=== PATIENT | female | born 1990 | race Caucasian/White ===

== ENCOUNTER 2022-10-09 10:41 | Outpatient (RCR) | payer MEDICAID, SELFPAY ==
--- NOTE | 2022-10-09 11:15 | HOLTER_ITS ---
APPROVED REPORT Conclusion This is a 24-hour Holter monitor ordered for chest pain Rhythm throughout was sinus with an average heart rate of 82. Minimum was 55, maximum 165 There are very rare isolated atrial and ventricular ectopic beats There is no atrial fibrillation, no SVT, no high-grade AV block, no pauses greater than 3 seconds Patient symptoms were reported which had no correlation with any dysrhythmia
== END 2022-10-27 23:59 | disposition home or self-care (01) ==
LOC: CARDOPNVT 10:41
PROVIDERS: PCP Naturopath; Visit Provider Naturopath
DX: R07.9 Chest pain, unspecified (principal)
CPT/HCPCS: 93225; 93226

== ENCOUNTER 2022-10-16 00:35 | Outpatient (CLI) | payer MEDICAID, SELFPAY ==
--- NOTE | 2022-10-16 06:27 | DI.MRI_ITS ---
Exam(s) MR BRAIN WO EXAM: MR BRAIN WO CLINICAL HISTORY: WEAKNESS,PARESTHESIAS,R53.1,E20.2,? MS TECHNIQUE: Multiplanar multisequence MRI of the brain was performed. COMPARISON: No priors for comparison. FINDINGS: VENTRICLES AND EXTRA AXIAL SPACES: Normal in size and morphology for the patient's age. MIDLINE SHIFT: None. CEREBRAL PARENCHYMA: No focus of restricted diffusion to suggest acute infarct. No space-occupying le kala identified. HEMORRHAGE: None. BRAINSTEM/CEREBELLUM: Normal. CALVARIUM: Normal. VISUALIZED PARANASAL SINUSES/MASTOIDS:Clear. [place]: Normal flow void. PITUITARY GLAND: Unremarkable. OTHER FINDINGS: None. IMPRESSION: Unremarkable MRI of the brain. DATA REPOSITORY:
== END 2022-10-16 00:55 ==
PROVIDERS: PCP Naturopath; Visit Provider Psychiatry & Neurology Neurology
DX: R20.2 Paresthesia of skin (principal); R53.1 Weakness
CPT/HCPCS: 70551

== ENCOUNTER 2022-10-16 12:42 | Emergency (ER) | payer MEDICAID, SELFPAY ==
[2022-10-16] VITALS (21 sets, daily range): BP systolic 72–157; BP diastolic 58–105; PULSE 60–178; RESP 18; TEMP 36.8; O2SAT 96–100
--- NOTE | 2022-10-16 15:09 | W.ED.GENAD ---
Discharge Plan Disposition Patient Disposition: Home Discharge Details Chief Complaint: GenMedical Clinical Impression: Fatigue, Paresthesia Primary Care Provider: Rigoberto Torre ED Provider: Dionicio Henriquez Meds and New Rx's Prescriptions: No Action doxycycline monohydrate 100 mg capsule 100 mg PO BID Rx Instructions: 1 capsule BID PO for 30 days salmon oil-omega-3 fatty acids 1,000-210 mg capsule PO Rx Instructions: unidentified dose astaxanthin 4 mg capsule 12 mg PO DAILY Rx Instructions: unspecified dose on med list vitamin D3-vitamin K2 250 mcg (10,000 unit)-45 mcg capsule 1 cap PO DAILY Rx Instructions: unspecified dose on med list fvtfciqo-dluzclxx-rtaqj acids Capsule PO Rx Instructions: Unspecified dose on med list vit B comp-vit E-FA-hb 105 30-0.4 unit-mg tablet PO Rx Instructions: unspecified dose in med list NT Factor Energy PO Rx Instructions: no dosing info listed on med list BDNF Essentials PO Rx Instructions: no dosing info on med list omega-3 fatty acids Capsule 500 mg PO DAILY Patient Comments: no dosing info on med list Ion Biome 1 tsp PO TID Daily Immune 2 cap PO DAILY Rx Instructions: With food Ortho Spore 1 cap PO DAILY Vital Nutrients detox formula 2 cap PO DAILY LB Core protocol PO Rx Instructions: No dosing information listed on med list HPA Adapt 3 cap PO DAILY zolpidem 5 mg tablet 5 mg PO QHS Rx Instructions: may repeat once if no response in 30-60 minutes hydroxyzine HCl 25 mg tablet 100 mg PO QHS Rx Instructions: 1 tab PO QHS for 30 days clonidine HCl 0.1 mg tablet 0.1 mg PO QHS dextroamphetamine-amphetamine [Adderall XR] 20 mg capsule,extended release 24hr 20 mg PO DAILY gabapentin 300 mg capsule 300 mg PO DAILY Patient Comments: TAKE ONE CAPSULE BY MOUTH EVERY DAY IN THE EVENING Discharge Instructions Instructions: Fatigue (ED) Additional Instructions: Please follow with your primary care physician. Please return to the emergency department for any worsening symptoms Medical Decision Making 32-year-old female history of fibromyalgia, Lyme, presents with body ache paresthesias over the past several weeks intermittent in nature can be exacerbated by physical stimuli in the environment. Patient is afebrile nontoxic neurologically intact moving all extremities no signs of trauma intoxication or infection. Will evaluate basic metabolic panel urinalysis CBC to assess for any electrolyte derangements or signs of dehydration. Low suspicion for acute neurologic process such as CVA or encephalitis given history and physical. Low suspicion for cardiopulmonary disease given age history and physical. Will trial fluids benzodiazepine Zofran and dexamethasone. 17: 08 patient appears greatly improved after fluids and medications. Labs unremarkable. Patient will follow-up with her primary care physician. Given home care instructions and return precaution HPI General Date/Time Provider Initiated Documentation: 10/16/22 12:56. HPI Narrative: 32-year-old female history of fibromyalgia Lyme disease presents with tingling sensation body pain lightheadedness triggered by environmental stimuli such as warm/hot bath. No chest pain or shortness of breath. No syncope. Patient endorses chronic Lyme disease is not on any antibiotics Related Data Home Medications Medication Instructions Recorded Confirmed doxycycline monohydrate 100 mg 100 mg PO BID 06/23/22 10/01/22 capsule salmon oil 1,000 mg-omega-3 fatty cap PO 06/23/22 10/01/22 acids 210 mg capsule BDNF Essentials PO 06/24/22 10/01/22 Daily Immune 2 cap PO DAILY 06/24/22 10/01/22 HPA Adapt 3 cap PO DAILY 06/24/22 10/16/22 Ion Biome 1 tsp PO TID 06/24/22 10/16/22 LB Core protocol PO 06/24/22 10/01/22 NT Factor Energy PO 06/24/22 10/01/22 Ortho Spore 1 cap PO DAILY 06/24/22 10/16/22 Vital Nutrients detox formula 2 cap PO DAILY 06/24/22 10/16/22 astaxanthin 4 mg capsule 12 mg PO DAILY 06/24/22 10/16/22 ytytoijj-eflloief-fmqku acids cap PO 06/24/22 10/01/22 capsule omega-3 fatty acids 500 mg PO DAILY 06/24/22 10/16/22 vit B comp-vit E-FA-hb 105 30 tab PO 06/24/22 10/01/22 unit-0.4 mg tablet vitamin D3 250 mcg (10,000 1 cap PO DAILY 06/24/22 10/16/22 unit)-vitamin K2 45 mcg capsule clonidine HCl 0.1 mg tablet 0.1 mg PO QHS 10/01/22 10/01/22 dextroamphetamine-amphetamine ER 20 mg PO DAILY 10/01/22 10/16/22 20 mg 24hr capsule,extend release (Adderall XR) hydroxyzine HCl 25 mg tablet 100 mg PO QHS 10/01/22 10/01/22 zolpidem 5 mg tablet 5 mg PO QHS 10/01/22 10/01/22 gabapentin 300 mg capsule 300 mg PO DAILY 10/16/22 10/16/22 Allergies Allergy/AdvReac Type Severity Reaction Status Date / Time No Known Allergies Allergy Verified 10/16/22 12:56 General Stated Complaint: GenMedical EUGENIA: 3 Review of Systems Narrative: Review of Systems Constitutional: Body aches Eyes: negative ENT: negative Cardiovascular: negative Respiratory: negative Gastrointestinal: negative : negative Musculoskeletal: negative Skin: negative Neurologic: Paresthesias Psych: negative PFSH All Active Problems (Updated 10/16/22 @ 17:12 by Dionicio Henriquez MD) Fatigue (Acute) Paresthesia (Acute) Paresthesias (Acute) Weakness (Acute) Medical History ADHD Anxiety Chronic fatigue Depression Fibromyalgia Insomnia Lyme disease Ruptured appendix Surgical History H/O knee surgery R knee scope 2005 H/O spinal fusion L5-S1, 2013. Hx of colonoscopy S/P appendectomy Family History Father Hypertension Brother Lyme arthritis Social History Smoking/Tobacco Use Status: Never Smoking risk assessment performed?: Yes Alcohol Intake: current Alcohol Intake frequency: a few times a week Alcohol type: beer and hard liquor Details: OCCASIONAL 4 DRINKS PER WEEK Drug use: Daily Substance use type: marijuana Household members: significant other Education Level: college current occupation: Waste Specialist Exam Narrative Exam Narrative: Physical Examination General: alert, awake, cooperative, no acute distress HEENT: normocephalic, atraumatic; PERRL, EOM intact, conjunctiva normal; no nasal discharge; moist mucous membranes, oral and pharyngeal mucosa normal, tolerating secretions Neck: supple, trachea midline; full ROM Chest: normal to inspection Respiratory: normal respiratory effort, speaking in full sentences, clear to auscultation, no wheezing, rales or rhonchi Cardiac: regular rate, regular rhythm, S1S2 intact, no murmurs rubs or gallops GI: abdomen soft, non-tender, non-distended; no palpable mass or hepatosplenomegaly Skin: no lesions, rashes or trauma appreciated Neuro: AAOx3, normal speech, moving all extremities Extremities: No peripheral edema, no signs of trauma, moving all extremities Course Vital Signs Vital signs: Vital Signs Temperature 36.8 C 10/16/22 12:52 Pulse 79 10/16/22 12:52 Respiratory Rate 18 10/16/22 12:52 Blood Pressure 157/105 H 10/16/22 12:52 Pulse Oximetry 99 10/16/22 12:52 Temperature 36.8 C 10/16/22 12:52 Temperature Source Oral 10/16/22 12:52 Pulse 79 10/16/22 12:52 Respiratory Rate 18 10/16/22 12:52 Respiratory Effort Normal 10/16/22 14:59 Respiratory Depth Normal 10/16/22 14:59 Respiratory Pattern Normal 10/16/22 14:59 Blood Pressure 157/105 H 10/16/22 12:52 Blood Pressure Position Sitting 10/16/22 12:52 Pulse Oximetry 99 10/16/22 12:52 Oxygen Delivery Method Room Air 10/16/22 12:52 Oxygen Flow Rate 0 10/16/22 12:52 Pain Level 6 10/16/22 12:52 Lab/Test Results Lab/Test Results: Laboratory Tests Range/Units 10/16/22 14:57 Urine Opiates Screen Cancelled Urine Methadone Screen Cancelled Ur Barbiturates Screen Cancelled Ur Tricyclics Screen Cancelled Ur Amphetamines Screen Cancelled U Benzodiazepines Scrn Cancelled Urine Cocaine Screen Cancelled Ur THC Screen Cancelled PAWSS Have you Been Recently Intoxicated or Drunk Within the Last 30 days?: Yes Have you Ever Experienced Previous Episodes of Alcohol Withdrawal?: No Have you ever Experienced Withdrawal Seizures?: No Have you ever Experienced Delirium Tremens(DT)s?: No Have you ever undergone Alcohol Rehabilitation Treatment (i.e, inpt ot outpatient treatment programs)?: No Have you ever Experienced Blackouts?: No Have you ever Combined Alcohol with other Downers within the last 90 days?: Yes Have you ever Combined Alcohol with any other Substance of Abuse during the last 90 days?: No Positive Blood Alcohol level on Presentation? [PCS.BAL]: No Evidence of Increased Autonomic Activity (i.e. HR>120, tremor, sweating, agitation, nausea)?: No Result: 1
[2022-10-16 15:12] LABS: Bilirubin Negative (Negative); Blood Negative (Negative); Clarity Clear (Clear); Glucose Negative (Negative); Ketones 15 mg/dL (Negative); Leukocyte Esterase Negative (Negative); Nitrite Negative (Negative); Urobilinogen 0.2 mg/dL (Up to 0.2); pH 7.5 (5-8)
[2022-10-16 15:21] LABS: Abs Immature Grans 0.02 10^3/uL (0.0-0.06); Absolute Basophil Count 0.03 10^3/uL (0.0-0.2); Absolute Eosinophil Count 0.02 10^3/uL (0.0-0.7); Absolute Lymphocyte Count 1.52 10^3/uL (1.2-3.4); Absolute Monocyte Count 0.36 10^3/uL (0.1-0.8); Absolute Neutrophil Count 6.03 10^3/uL (1.2-6.7); Basophils % 0.4; Eosinophils % 0.3; HCT 37.9 % (36.0-46.0); HGB 12.6 g/dL (11.2-15.7); Immature Grans % 0.3; MCH 28.8 pg (27.0-33.0); MCHC 33.2 % (32.0-36.0); MCV 87 fL (80-95); MPV 9.9 fL (8.0-11.0); Monocytes % 4.5; Neutrophils % 75.5; Platelet Count 248 10^3/uL (130-400); RBC 4.37 10^6/uL (3.93-5.22); RDW 12.7 % (11.7-14.6); RDW-SD 40.5 fL; WBC 7.98 10^3/uL (4.4-10.8)
[2022-10-16 15:38] LABS: ALT 11 U/L (14-59); AST 12 U/L (15-37); Albumin 4.3 g/dL (3.4-5.0); Alkaline Phosphatase 69 U/L (46-116); Anion Gap 8.2 mmol/L (3-11); BUN 5 mg/dL (7-18); Bilirubin, Total 0.5 mg/dL (0.2-1.0); CO2 24.8 mmol/L (21.0-32.0); CREATININE 0.8 mg/dL (0.55-1.02); Calcium 8.8 mg/dL (8.5-10.1); Chloride 109 mmol/L (98-107); Estimated GFR 100.96 (mL/min/1.73m2); Glucose 103 mg/dL (74-106); Potassium 3.7 mmol/L (3.5-5.1); Sodium 142 mmol/L (136-145); Total Protein 6.8 g/dL (6.4-8.2)
[2022-10-16] MEDS: Normal Saline 1,000 ML 1000 ML IV (15:43)
[2022-10-16] MEDS: Dexamethasone 10 MG/ML VIAL IVP (15:44)
[2022-10-16] MEDS: Ondansetron 4 MG/2 ML VIAL IVP (15:44)
[2022-10-16] MEDS: LORazepam 2 MG/ML VIAL 1 MG IVP (15:44)
[2022-10-20 10:11] LABS: Lyme Ab w Rflx to Lyme Confirm Negative (Negative)
[2022-10-21 15:38] LABS: Anaplasma phagocytophilum Negative (Negative); B. miyamotoi PCR Negative (Negative); Babesia divergens/MO-1 Negative (Negative); Babesia duncani Negative (Negative); Babesia microti Negative (Negative); Ehrlichia chaffeensis Negative (Negative); Ehrlichia ewingii/canis Negative (Negative); Ehrlichia muris eauclairensis Negative (Negative)
== END 2022-10-16 17:53 | disposition home or self-care (01) ==
PROVIDERS: Emergency Provider Emergency Medicine; PCP Naturopath
DX: M79.10 Myalgia, unspecified site (principal); R53.83 Other fatigue; R20.2 Paresthesia of skin; A69.20 Lyme disease, unspecified
CPT/HCPCS: 36415; 80053; 80307; 87798; 96361; 96374; 96375; 99283; 81003; 85025; 86618; J1100; J2060; J2405

== ENCOUNTER 2022-10-17 11:18 | Emergency (ER) | payer MEDICAID, SELFPAY ==
[2022-10-17 11:19] VITALS: BP 157/103; PULSE 89; RESP 16; TEMP 37.2; O2SAT 99
--- NOTE | 2022-10-17 12:00 | ED.GENADUL_ITS ---
Discharge Plan Disposition Patient Disposition: Home Discharge Details Clinical Impression: Fatigue, Nausea & vomiting, Acute hypokalemia, Chronic nasal discharge Primary Care Provider: Rigoberto Torre ED Provider: Cameron Sharma Meds and New Rx's Prescriptions: New ondansetron 4 mg tablet,disintegrating 4 mg PO Q8H PRN (Reason: nausea and vomiting) Qty: 10 0RF Continued doxycycline monohydrate 100 mg capsule 100 mg PO BID Rx Instructions: 1 capsule BID PO for 30 days salmon oil-omega-3 fatty acids 1,000-210 mg capsule PO Rx Instructions: unidentified dose astaxanthin 4 mg capsule 12 mg PO DAILY Rx Instructions: unspecified dose on med list vitamin D3-vitamin K2 250 mcg (10,000 unit)-45 mcg capsule 1 cap PO DAILY Rx Instructions: unspecified dose on med list foyuzzyb-zpsynxyc-vgbpa acids Capsule PO Rx Instructions: Unspecified dose on med list vit B comp-vit E-FA-hb 105 30-0.4 unit-mg tablet PO Rx Instructions: unspecified dose in med list NT Factor Energy PO Rx Instructions: no dosing info listed on med list BDNF Essentials PO Rx Instructions: no dosing info on med list omega-3 fatty acids Capsule 500 mg PO DAILY Patient Comments: no dosing info on med list Ion Biome 1 tsp PO TID Daily Immune 2 cap PO DAILY Rx Instructions: With food Ortho Spore 1 cap PO DAILY Vital Nutrients detox formula 2 cap PO DAILY LB Core protocol PO Rx Instructions: No dosing information listed on med list HPA Adapt 3 cap PO DAILY zolpidem 5 mg tablet 5 mg PO QHS Rx Instructions: may repeat once if no response in 30-60 minutes clonidine HCl 0.1 mg tablet 0.1 mg PO QHS dextroamphetamine-amphetamine [Adderall XR] 20 mg capsule,extended release 24hr 20 mg PO DAILY gabapentin 300 mg capsule 300 mg PO DAILY Patient Comments: TAKE ONE CAPSULE BY MOUTH EVERY DAY IN THE EVENING Discontinued hydroxyzine HCl 25 mg tablet 100 mg PO QHS Rx Instructions: 1 tab PO QHS for 30 days Discharge Instructions Instructions: Hypokalemia (ED), Acute Nausea and Vomiting (ED), Fatigue (ED) Additional Instructions: Please follow-up with your primary care provider for reassessment if not improving. You may slowly advance your diet as tolerated and feel free to return the emergency department for any new or significant worsening of symptoms. Consider talking with your primary care provider about an ENT referral for your chronic nasal drainage. Referrals: Rigoberto Torre David [Primary Care Provider] - Discharge Data Discharge Date/Time-TO BE ENTERED AT DEPARTURE: 10/17/22 14:01 Medical Decision Making Patient presenting to the emergency department for nausea vomiting generalized pain and discomfort. She states that this has been going on for a while but over the past couple days has felt worse. She does states she has had some clear nasal drainage and and neck pain. Patient states history of chronic Lyme disease, fibromyalgia, fatigue and chronic paresthesias. Physical exam shows no nuchal rigidity, no nasal drainage, normal HEENT exam, no obvious cranial nerve dysfunction, gross motor is intact normal cardiac respiratory and GI exam. Given patient's significant symptoms will recheck patient's labs to compare them from yesterday's and while doing that we will give IV fluids, Compazine, Benadryl, ketorolac. Reviewed patient's labs and she does have slight elevation of WBC at 10.95, hematocrit of 34.2, neutrophils of 7.5 all other labs within normal range, ESR less than 1 CRP is less than 0.05 CMP does show slight low potassium at 3.2 which we will orally replete, chloride of 108, BUN of 5, AST and ALT both low although the labs within normal range. Reassessed patient and she did state some improvement of overall symptoms which I feel is reassuring and I do not feel that any findings are emergent. Patient was encouraged to continue to monitor symptoms and follow-up with her primary care provider for further reassessment. Did inform patient of negative MRI results along with Holter monitor results. After discussion of diagnosis and plan of care patient has no further needs, questions, or concerns and states clear understanding to return to the emergency department for any worsening symptoms. This documentation was generated using Dubizzleation system, please disregard any oddities of phrase or misspellings. Medical Records Medical records reviewed: Yes I reviewed the patient's medical records. Medical records narrative: Reviewed previous neurology and ER visit along with labs performed yesterday Lab Data Lab results reviewed: Yes I reviewed the patient's lab results. HPI General Mode of arrival: ambulatory . Date/Time Provider Initiated Documentation: 10/17/22 11:18 . Limitations to Documentation: no limitations . Information obtained by: patient, family and RN notes reviewed . History of Present Illness 32 year old F presents to the emergency department with the chief complaint of Nausea, general myalgia, general weakness, described as moderate, severe and similar to prior episodes, Quality is described as aching, Patient started experiencing this week(s) (2) and it has been constant. No relieving factors improve symptom(s), No exacerbating factors reported . Related Data Home Medications Medication Instructions Recorded Confirmed doxycycline monohydrate 100 mg 100 mg PO BID 06/23/22 10/17/22 capsule salmon oil 1,000 mg-omega-3 fatty cap PO 06/23/22 10/01/22 acids 210 mg capsule BDNF Essentials PO 06/24/22 10/01/22 Daily Immune 2 cap PO DAILY 06/24/22 10/17/22 HPA Adapt 3 cap PO DAILY 06/24/22 10/17/22 Ion Biome 1 tsp PO TID 06/24/22 10/17/22 LB Core protocol PO 06/24/22 10/01/22 NT Factor Energy PO 06/24/22 10/01/22 Ortho Spore 1 cap PO DAILY 06/24/22 10/17/22 Vital Nutrients detox formula 2 cap PO DAILY 06/24/22 10/17/22 astaxanthin 4 mg capsule 12 mg PO DAILY 06/24/22 10/17/22 tnrjdjos-ybwxrlqq-avyjq acids cap PO 06/24/22 10/01/22 capsule omega-3 fatty acids 500 mg PO DAILY 06/24/22 10/17/22 vit B comp-vit E-FA-hb 105 30 tab PO 06/24/22 10/01/22 unit-0.4 mg tablet vitamin D3 250 mcg (10,000 1 cap PO DAILY 06/24/22 10/17/22 unit)-vitamin K2 45 mcg capsule clonidine HCl 0.1 mg tablet 0.1 mg PO QHS 10/01/22 10/17/22 dextroamphetamine-amphetamine ER 20 mg PO DAILY 10/01/22 10/17/22 20 mg 24hr capsule,extend release (Adderall XR) zolpidem 5 mg tablet 5 mg PO QHS 10/01/22 10/17/22 gabapentin 300 mg capsule 300 mg PO DAILY 10/16/22 10/17/22 ondansetron 4 mg disintegrating 4 mg PO Q8H PRN nausea and 10/17/22 tablet vomiting #10 tabs Previous Rx's Medication Instructions Recorded ondansetron 4 mg disintegrating 4 mg PO Q8H PRN nausea and 10/17/22 tablet vomiting #10 tabs Allergies Allergy/AdvReac Type Severity Reaction Status Date / Time No Known Allergies Allergy Verified 10/17/22 11:23 General Stated Complaint: Nausea/Vomit/Diar EUGENIA: 3 Review of Systems Constitutional Constitutional: Reports chills, Reports fatigue, Denies fever(s), Reports headache(s), Reports lethargy and Reports malaise ENT Ears, Nose, Mouth, and Throat: Reports otalgia, Reports headache(s), Reports nasal congestion, Reports nasal discharge and Reports neck pain Cardiovascular Cardiovascular: Denies chest pain and Denies dyspnea Respiratory Respiratory: Denies dyspnea Gastrointestinal Gastrointestinal: Reports abdominal pain, Denies diarrhea, Reports nausea and Reports vomiting Musculoskeletal Musculoskeletal: Reports myalgias, Reports muscle weakness, Reports neck pain, Denies numbness and Denies tingling Integumentary/Breasts Skin/Breast: Denies rash Neurologic Neurologic: Reports headache(s), Denies numbness and Denies tingling Psychiatric Psychiatric: Reports anxiety Endocrine Endocrine: Reports fatigue PFSH All Active Problems (Updated 10/17/22 @ 13:45 by Cameron Sharma NP) Fatigue (Acute) Paresthesia (Acute) Nausea & vomiting (Acute) Acute hypokalemia (Acute) Chronic nasal discharge (Acute) Paresthesias (Acute) Weakness (Acute) Medical History ADHD Anxiety Chronic fatigue Depression Fibromyalgia Insomnia Lyme disease Ruptured appendix Surgical History H/O knee surgery R knee scope 2005 H/O spinal fusion L5-S1, 2013. Hx of colonoscopy S/P appendectomy Family History Father Hypertension Brother Lyme arthritis Social History Smoking/Tobacco Use Status: Never Smoking risk assessment performed?: Yes Alcohol Intake: current Alcohol Intake frequency: a few times a week Alcohol type: beer and hard liquor Details: OCCASIONAL 4 DRINKS PER WEEK Drug use: Daily Substance use type: marijuana Household members: significant other Housing: house Education Level: college current occupation: Marine Diesel Mechanic Exam Const General: cooperative, healthy appearing, no acute distress and well groomed Orientation: alert, awake and oriented x3 HENMT Head: normal to inspection Ears: hearing grossly normal bilaterally and TM's normal bilaterally Mouth: oral mucosae normal and moist mucous membranes Throat: posterior oropharynx normal Neck Neck: normal visual inspection, full ROM and no meningeal signs Resp Effort & Inspection: normal respiratory effort and able to speak in complete sentences Auscultation: clear to auscultation bilaterally Cardio Rate: regular rate Rhythm: regular rhythm Heart Sounds: S1 normal and S2 normal GI Palpation: soft, no hepatosplenomegaly, not firm, no guarding, no masses, no pulsatile masses, not rigid and no splenomegaly Auscultation: normal bowel sounds Neuro General: patient alert, patient awake, patient oriented x3, gait normal, tone normal, moves all extremities, CN's II-XI intact bilaterally and not confused Cognition: normal cognition Speech: speech normal Motor: muscle tone normal throughout, no pronator drift and no fasciculations Course Vital Signs Vital signs: Vital Signs Temperature 37.2 C 10/17/22 11:19 Pulse 89 10/17/22 11:19 Respiratory Rate 16 10/17/22 11:19 Blood Pressure 157/103 H 10/17/22 11:19 Pulse Oximetry 99 10/17/22 11:19 Temperature 37.2 C 10/17/22 11:19 Temperature Source Temporal Artery Scan 10/17/22 11:19 Pulse 89 10/17/22 11:19 Respiratory Rate 16 10/17/22 11:19 Respiratory Effort Normal 10/17/22 11:22 Blood Pressure 157/103 H 10/17/22 11:19 Blood Pressure Position Sitting 10/17/22 11:19 Pulse Oximetry 99 10/17/22 11:19 Oxygen Delivery Method Room Air 10/17/22 11:19 Oxygen Flow Rate 0 10/17/22 11:19 Pain Level 7 10/17/22 11:19
[2022-10-17] MEDS: Ketorolac 30 MG/ML VIAL IVP (12:25)
[2022-10-17] MEDS: Prochlorperazine 10 MG/2 ML VIAL IVP (12:25)
[2022-10-17] MEDS: diphenhydrAMINE 50 MG/ML VIAL 12.5 MG IVP (12:25)
[2022-10-17] MEDS: Normal Saline 1,000 ML 1000 ML IV (12:26)
[2022-10-17 12:37] LABS: Abs Immature Grans 0.03 10^3/uL (0.0-0.06); Absolute Basophil Count 0.02 10^3/uL (0.0-0.2); Absolute Eosinophil Count 0.01 10^3/uL (0.0-0.7); Absolute Lymphocyte Count 2.51 10^3/uL (1.2-3.4); Absolute Monocyte Count 0.53 10^3/uL (0.1-0.8); Absolute Neutrophil Count 7.85 10^3/uL (1.2-6.7); Basophils % 0.2; Eosinophils % 0.1; HCT 34.2 % (36.0-46.0); HGB 11.7 g/dL (11.2-15.7); Immature Grans % 0.3; Lymphocytes % 22.9; MCH 29.5 pg (27.0-33.0); MCHC 34.2 % (32.0-36.0); MCV 86 fL (80-95); Monocytes % 4.8; Neutrophils % 71.7; Platelet Count 219 10^3/uL (130-400); RBC 3.97 10^6/uL (3.93-5.22); RDW 12.7 % (11.7-14.6); RDW-SD 40.4 fL; WBC 10.95 10^3/uL (4.4-10.8)
[2022-10-17 12:54] LABS: ALT 12 U/L (14-59); AST 11 U/L (15-37); Albumin 4.1 g/dL (3.4-5.0); Alkaline Phosphatase 64 U/L (46-116); Anion Gap 8.2 mmol/L (3-11); BUN 5 mg/dL (7-18); Bilirubin, Total 0.5 mg/dL (0.2-1.0); CO2 24.8 mmol/L (21.0-32.0); CREATININE 0.8 mg/dL (0.55-1.02); Calcium 8.6 mg/dL (8.5-10.1); Chloride 108 mmol/L (98-107); Estimated GFR 100.96 (mL/min/1.73m2); Glucose 92 mg/dL (74-106); Lipase 29 U/L (16-77); Magnesium 1.9 mg/dL (1.8-2.4); Potassium 3.2 mmol/L (3.5-5.1); Sodium 141 mmol/L (136-145); Total Protein 6.5 g/dL (6.4-8.2)
[2022-10-17 12:56] LABS: C-Reactive Protein < 0.05 mg/dL (0.0-0.3)
[2022-10-17 13:05] LABS: ESR < 1 mm/hr (0-20)
[2022-10-17] MEDS: Ondansetron O.D.T. 4 MG TABEF PO (13:53)
[2022-10-17] MEDS: Potassium Chloride 20 MEQ TABCR 40 MEQ PO (13:53)
[2022-10-17 13:59] VITALS: BP 118/72; PULSE 62; RESP 15; TEMP 36.6; O2SAT 98
== END 2022-10-17 14:01 | disposition home or self-care (01) ==
PROVIDERS: Emergency Provider Nurse Practitioner Family; PCP Naturopath
DX: R11.2 Nausea with vomiting, unspecified (principal); E87.6 Hypokalemia; R53.83 Other fatigue; R09.82 Postnasal drip
CPT/HCPCS: 80053; 83690; 85652; 96361; 96374; 96375; 99284; 83735; 85025; 86140; 99283; J0780; J1200; J1885

== ENCOUNTER → 2023-03-13 00:36 | Outpatient (CLI) | payer MEDICAID, SELFPAY ==
--- NOTE | 2023-03-13 | DI.US_ITS ---
Exam(s) US PELVIS TRANSVAGINAL EXAM: US PELVIS TRANSVAGINAL CLINICAL HISTORY: H/O MISCARRIAGE,Z87.59,CRAMPING,SPOTTING,?FIBROID OR ENDOMETRIOSIS,H/O TECHNIQUE: Transabdominal and transvaginal imaging was performed using standard protocol. COMPARISON: No exams were available for comparison FINDINGS: UTERUS: Anteverted. 6.6 x 3.4 x 4.1 cm Endometrium: 6 mm Myometrium: Unremarkable. No fibroids. Cervix: Unremarkable. OVARIES: Right: Cyst or mass: None. Left: Cyst or mass: None. DOPPLER: Color: Symmetric and uniform flow to both ovaries. No hyperemia. CUL-DE-SAC: Free fluid: Trace IMPRESSION: 1. Normal-appearing uterus with endometrial stripe within normal limits. 2. Unremarkable bilateral ovaries. DATA REPOSITORY:
== END ==
PROVIDERS: PCP Naturopath; Visit Provider Naturopath
DX: Z87.59 Personal history of other complications of pregnancy, childbirth and the puerperium (principal)
CPT/HCPCS: 76830; 76856

== ENCOUNTER 2023-12-18 14:49 | Outpatient (CLI) | payer MEDICAID, SELFPAY ==
[2023-12-18 15:06] LABS: Abs Immature Grans 0.03 10^3/uL (0.0-0.06); Absolute Basophil Count 0.03 10^3/uL (0.0-0.2); Absolute Eosinophil Count 0.08 10^3/uL (0.0-0.7); Absolute Lymphocyte Count 1.98 10^3/uL (1.2-3.4); Absolute Monocyte Count 0.38 10^3/uL (0.1-0.8); Absolute Neutrophil Count 4.04 10^3/uL (1.2-6.7); Basophils % 0.5 %; Eosinophils % 1.2 %; HCT 37.5 % (36.0-46.0); HGB 12.3 g/dL (11.2-15.7); Immature Grans % 0.5 %; Lymphocytes % 30.3 %; MCH 30.4 pg (27.0-33.0); MCHC 32.8 % (32.0-36.0); MCV 93 fL (80-95); MPV 10.7 fL (8.0-11.0); Monocytes % 5.8 %; Neutrophils % 61.7 %; Platelet Count 223 10^3/uL (130-400); RBC 4.04 10^6/uL (3.93-5.22); RDW 12.9 % (11.7-14.6); RDW-SD 44.1 fL; WBC 6.54 10^3/uL (4.4-10.8)
[2023-12-18 15:45] LABS: Iron 88 ug/dL (50-170); Total Iron Binding Capacity 303 ug/dL (250-450); Transferrin Sat 29 % (15-50)
[2023-12-18 16:13] LABS: ALT 13 U/L (14-59); AST 18 U/L (15-37); Albumin 3.8 g/dL (3.4-5.0); Alkaline Phosphatase 76 U/L (46-116); Anion Gap 9.2 mmol/L (3-11); BUN 9 mg/dL (7-18); Bilirubin, Total 0.33 mg/dL (0.2-1.0); CO2 25.8 mmol/L (21.0-32.0); CREATININE 1.1 mg/dL (0.55-1.02); Calcium 8.4 mg/dL (8.5-10.1); Calculated LDL 55 mg/dL (<100); Chloride 105 mmol/L (98-107); Cholesterol 147 mg/dL (<200); Estimated GFR 68.47 (mL/min/1.73m2); Ferritin 69 ng/mL (8-252); Folate 8.2 ng/mL (8.6-20.0); Glucose 98 mg/dL (74-106); HDL Cholesterol 78 mg/dL (40-60); Potassium 3.8 mmol/L (3.5-5.1); Sodium 140 mmol/L (136-145); TSH 0.65 uIU/Ml (0.36-3.74); Total Protein 6.3 g/dL (6.4-8.2); Triglyceride 73 mg/dL (<150); Vitamin B12 266 pg/mL (193-986); Vitamin D 25 Total 28.8 ng/mL (30-100)
== END 2023-12-18 14:50 | disposition home or self-care (01) ==
LOC: LBO 14:51
PROVIDERS: PCP Naturopath; Visit Provider Naturopath
DX: Z00.00 Encounter for general adult medical examination without abnormal findings (principal); E55.9 Vitamin D deficiency, unspecified; R53.83 Other fatigue
CPT/HCPCS: 36415; 80053; 80061; 82306; 82607; 82728; 82746; 83036; 83540; 83550; 84443; 85025